=== PATIENT | female | born 1940 | race Caucasian/White ===

== ENCOUNTER 2019-07-04 09:39 | Observation (INO) ==
[2019-07-04] MEDS ORDERED: SODIUM CHLORIDE 0.9% 1,000 ML IV STA (10:16)
[2019-07-04] MEDS ORDERED: ONDANSETRON 4 MG/2 ML VIAL IV STA (10:16)
[2019-07-04 10:57] LABS: Basophils # 0.1 10*3/uL (0.0-0.2); Basophils % 0.6 % (0.0-0.8); Eosinophils # 0.3 10*3/uL (0.0-0.87); Eosinophils % 3.6 % (0.00-10.9); Hematocrit 41.7 VOL% (35.7-47.0); Hemoglobin 14.4 GM/DL (12.0-16.0); Immature Granulocytes % 0.7 %; Immature Granulocytes Absolute 0.06 #; Lymphocytes % 21.9 % (21.3-54.2); Mean Corpuscular HGB Conc 34.5 GM/DL (32-36); Mean Corpuscular Volume 89.3 FL (87-102); Mean Platelet Volume 8.3 FL (9.6-12.0); Monocytes % 10.4 % (1.7-12.7); Neutrophils % 62.8 % (38.7-73.9); Platelet Count 318 T/CUMM (130-400); Red Blood Count 4.67 MC/CUMM (3.8-5.5); Red Cell Distribution Width 12.8 % (9.3-17.3)
[2019-07-04 11:05] LABS: Apearance,Urine CLEAR (Clear); Bilirubin,Urine Negative (Negative); Blood, Urine Negative (Negative); Glucose,Urine (UA) Negative (Negative); Ketones,Urine Negative (Negative); Nitrite,Urine Negative (Negative); Protein,Urine Negative; RBC,Urine 1 /HPF (0-4); Squamous Epithelial Cell,Urine Occasional /HPF (0-10); Urine Color Yellow (Yellow); Urine Specific Gravity 1.005 (1.001-1.035); Urine Urobilinogen < 2.0 EU/DL (0.2-1.0); WBC,Urine <1 /HPF (0-6)
[2019-07-04 11:24] LABS: Albumin 4.2 G/DL (3.4-5.0); Bilirubin,Total 0.8 MG/DL (0.2-1.0); Calcium 9.3 MG/DL (8.5-10.1); Osmolality,Calculated 268.2 MOS/KG (273-304); Total Protein 8.2 G/DL (6.4-8.3)
[2019-07-04] MEDS ORDERED: POTASSIUM CHLORIDE 20 MEQ TABLET PO STA (12:31)
[2019-07-04] MEDS ORDERED: PROMETHAZINE 25 MG TABLET PO PRN (13:22)
[2019-07-04] MEDS ORDERED: diphenhydrAMINE CAP 25 MG CAPSULE PO PRN (13:22)
[2019-07-04] MEDS ORDERED: ONDANSETRON 4 MG/2 ML VIAL IV PRN (13:22)
[2019-07-04] MEDS: SODIUM CHLORIDE 0.9% 1,000 ML IV SCH ×2 (13:45→23:15)
[2019-07-04] MEDS ORDERED: hydrALAZINE 20 MG/1 ML VIAL IM PRN (17:14)
[2019-07-04] MEDS ORDERED: hydrALAZINE 20 MG/1 ML VIAL IV PRN (17:23)
[2019-07-04] MEDS: ASPIRIN EC 81 MG TABLET PO SCH (21:03)
[2019-07-04] MEDS: ATORVASTATIN 10 MG TABLET PO SCH (21:03)
[2019-07-04] MEDS: METOPROLOL SUCCINATE XL 25 MG TABLET PO SCH (21:04)
[2019-07-04] MEDS: ENOXAPARIN 40 MG/0.4 ML SYRINGE SUBCUT SCH (21:05)
[2019-07-04] MEDS: ACETAMINOPHEN 325 MG TABLET PO PRN (23:47)
[2019-07-05] MEDS: ACETAMINOPHEN 325 MG TABLET PO PRN ×2 (04:48→10:07)
[2019-07-05 05:40] LABS: Basophils # 0.1 10*3/uL (0.0-0.2); Basophils % 0.6 % (0.0-0.8); Eosinophils # 0.4 10*3/uL (0.0-0.87); Eosinophils % 5.4 % (0.00-10.9); Hematocrit 40.8 VOL% (35.7-47.0); Hemoglobin 13.9 GM/DL (12.0-16.0); Immature Granulocytes % 0.6 %; Immature Granulocytes Absolute 0.05 #; Lymphocytes # 2.1 10*3/uL (1.4-4.0); Lymphocytes % 25.5 % (21.3-54.2); Mean Corpuscular HGB Conc 34.1 GM/DL (32-36); Mean Corpuscular Volume 90.5 FL (87-102); Mean Platelet Volume 8.6 FL (9.6-12.0); Monocytes % 10.5 % (1.7-12.7); Neutrophils % 57.4 % (38.7-73.9); Platelet Count 321 T/CUMM (130-400); Red Blood Count 4.51 MC/CUMM (3.8-5.5); Red Cell Distribution Width 13.1 % (9.3-17.3); White Blood Count 8.1 T/CUMM (4-12)
[2019-07-05] MEDS ORDERED: POTASSIUM CHLORIDE 20 MEQ TABLET PO PRN (06:51)
[2019-07-05 07:48] LABS: Calcium 8.1 MG/DL (8.5-10.1); Osmolality,Calculated 277.3 MOS/KG (273-304)
[2019-07-05] MEDS: SODIUM CHLORIDE 0.9% 1,000 ML IV SCH ×4 (08:00→23:11)
[2019-07-05] MEDS ORDERED: Lansoprazole [Prevacid] 30 MG PO SCH (09:00)
[2019-07-05] MEDS: CYANOCOBALAMIN 500 MCG TABLET PO SCH (09:27)
[2019-07-05] MEDS: CALCIUM (CARBONATE) 500 MG TABLET PO SCH (09:27)
[2019-07-05] MEDS: PANTOPRAZOLE 40 MG TABLET PO SCH (09:27)
[2019-07-05] MEDS: ANASTROZOLE 1 MG TABLET PO SCH (09:54)
[2019-07-05] MEDS: LORATADINE 10 MG TABLET PO SCH (09:55)
[2019-07-05] MEDS: POTASSIUM CHLORIDE RIDER 10 MEQ in PREMIX 1 EACH IV PRN ×4 (09:56→15:48)
[2019-07-05] MEDS: MULTIVITAMIN (CENTRUM) TABLET PO SCH (10:10)
[2019-07-05] MEDS: METOPROLOL SUCCINATE XL 25 MG TABLET PO SCH ×2 (10:19→20:03)
[2019-07-05] MEDS: ATORVASTATIN 10 MG TABLET PO SCH (20:03)
[2019-07-05] MEDS: ENOXAPARIN 40 MG/0.4 ML SYRINGE SUBCUT SCH (20:03)
[2019-07-05] MEDS: ASPIRIN EC 81 MG TABLET PO SCH (20:03)
[2019-07-06 02:21] LABS: Calcium 7.9 MG/DL (8.5-10.1); Osmolality,Calculated 274.4 MOS/KG (273-304)
[2019-07-06] MEDS: POTASSIUM CHLORIDE RIDER 10 MEQ in PREMIX 1 EACH IV PRN ×3 (03:36→08:44)
[2019-07-06] MEDS: MULTIVITAMIN (CENTRUM) TABLET PO SCH (08:37)
[2019-07-06] MEDS: PANTOPRAZOLE 40 MG TABLET PO SCH (08:37)
[2019-07-06] MEDS: LORATADINE 10 MG TABLET PO SCH (08:37)
[2019-07-06] MEDS: METOPROLOL SUCCINATE XL 25 MG TABLET PO SCH (08:37)
[2019-07-06] MEDS: CYANOCOBALAMIN 500 MCG TABLET PO SCH (08:38)
[2019-07-06] MEDS: CALCIUM (CARBONATE) 500 MG TABLET PO SCH (08:38)
[2019-07-06] MEDS: SODIUM CHLORIDE 0.9% 1,000 ML IV SCH (08:38)
[2019-07-06] MEDS: ANASTROZOLE 1 MG TABLET PO SCH (08:38)
[2019-07-06 11:58] VITALS: BP 146/74
== END 2019-07-06 12:50 | disposition home or self-care (01) ==
LOC: N.ED 09:39 → N.EDINP 09:39 → N.2E 15:10

== ENCOUNTER 2019-09-12 11:39 | Observation (INO) ==
[2019-09-12] MEDS ORDERED: SODIUM CHLORIDE 0.9% 1,000 ML IV STA (12:29)
[2019-09-12 13:18] LABS: Basophils % 0.4 % (0.0-0.8); Eosinophils # 0.1 10*3/uL (0.0-0.87); Hemoglobin 13.7 GM/DL (12.0-16.0); Immature Granulocytes % 0.4 %; Immature Granulocytes Absolute 0.04 #; Lymphocytes # 0.9 10*3/uL (1.4-4.0); Lymphocytes % 8.4 % (21.3-54.2); Mean Corpuscular HGB Conc 33.4 GM/DL (32-36); Mean Corpuscular Volume 89.9 FL (87-102); Mean Platelet Volume 8.4 FL (9.6-12.0); Monocytes % 2.7 % (1.7-12.7); Neutrophils % 87.1 % (38.7-73.9); Platelet Count 256 T/CUMM (130-400); Red Blood Count 4.56 MC/CUMM (3.8-5.5); Red Cell Distribution Width 12.9 % (9.3-17.3); White Blood Count 10.1 T/CUMM (4-12)
[2019-09-12 13:26] LABS: PT Patient Result 10.5 SECS (9.6-12.2)
[2019-09-12 13:41] LABS: Apearance,Urine CLEAR (Clear); Bacteria,Urine Occasional /HPF (Few); Bilirubin,Urine Negative (Negative); Blood, Urine Negative (Negative); Glucose,Urine (UA) Negative (Negative); Ketones,Urine 5 mg/dL (Negative); Nitrite,Urine Negative (Negative); Protein,Urine Negative; RBC,Urine 2 /HPF (0-4); Squamous Epithelial Cell,Urine Occasional /HPF (0-10); Urine Color Straw (Yellow); Urine Specific Gravity 1.008 (1.001-1.035); Urine Urobilinogen < 2.0 EU/DL (0.2-1.0); WBC,Urine 1 /HPF (0-6)
[2019-09-12 13:42] LABS: Albumin 3.7 G/DL (3.4-5.0); Bilirubin,Total 0.8 MG/DL (0.2-1.0); Calcium 8.8 MG/DL (8.5-10.1); Osmolality,Calculated 275.8 MOS/KG (273-304); Total Protein 7.7 G/DL (6.4-8.3)
[2019-09-12] MEDS ORDERED: POTASSIUM CHLORIDE 20 MEQ TABLET PO STA (13:44)
[2019-09-12] MEDS ORDERED: hydrALAZINE 20 MG/1 ML VIAL ONE (13:51)
[2019-09-12] MEDS ORDERED: hydrALAZINE 20 MG/1 ML VIAL IV STA (13:55)
[2019-09-12] MEDS ORDERED: POTASSIUM BICARB EFFERVESCENT 25 MEQ TABLET PO ONE ×2 (14:29→14:30)
[2019-09-12] MEDS ORDERED: ONDANSETRON 4 MG/2 ML VIAL IV PRN (16:05)
[2019-09-12] MEDS ORDERED: ACETAMINOPHEN 325 MG TABLET PO PRN (16:05)
[2019-09-12] MEDS ORDERED: POTASSIUM CHLORIDE RIDER 10 MEQ in PREMIX 1 EACH IV ONE (16:10)
[2019-09-12] MEDS ORDERED: SODIUM CHLOR 0.9% KCL 20 MEQ 20 MEQ/1,000 ML BAG IV SCH (16:30)
[2019-09-12] MEDS ORDERED: ENOXAPARIN 40 MG/0.4 ML SYRINGE SUBCUT SCH (16:30)
[2019-09-12] MEDS ORDERED: ASPIRIN EC 81 MG TABLET PO SCH (20:00)
[2019-09-12] MEDS: LOSARTAN 50 MG TABLET PO SCH (20:09)
[2019-09-12] MEDS: carvediloL 12.5 MG TABLET PO SCH (20:09)
[2019-09-12] MEDS ORDERED: ATORVASTATIN 10 MG TABLET PO SCH (21:00)
[2019-09-13 04:19] LABS: Basophils % 0.3 % (0.0-0.8); Eosinophils # 0.1 10*3/uL (0.0-0.87); Eosinophils % 1.1 % (0.00-10.9); Hematocrit 33.7 VOL% (35.7-47.0); Hemoglobin 11.2 GM/DL (12.0-16.0); Immature Granulocytes % 0.4 %; Immature Granulocytes Absolute 0.03 #; Lymphocytes # 1.7 10*3/uL (1.4-4.0); Lymphocytes % 24.4 % (21.3-54.2); Mean Corpuscular HGB Conc 33.2 GM/DL (32-36); Mean Corpuscular Volume 89.6 FL (87-102); Mean Platelet Volume 8.5 FL (9.6-12.0); Monocytes % 11.5 % (1.7-12.7); Neutrophils % 62.3 % (38.7-73.9); Platelet Count 244 T/CUMM (130-400); Red Blood Count 3.76 MC/CUMM (3.8-5.5); Red Cell Distribution Width 13.2 % (9.3-17.3)
[2019-09-13 04:48] LABS: Calcium 7.5 MG/DL (8.5-10.1); Osmolality,Calculated 282.3 MOS/KG (273-304); Thyroid Stimulating Hormone 0.756 uIU/ml (0.358-3.74)
[2019-09-13] MEDS ORDERED: PANTOPRAZOLE 40 MG TABLET PO SCH (09:00)
[2019-09-13] MEDS ORDERED: CYANOCOBALAMIN 500 MCG TABLET PO SCH (09:00)
[2019-09-13] MEDS ORDERED: LORATADINE 10 MG TABLET PO SCH (09:00)
[2019-09-13] MEDS ORDERED: CALCIUM (CARBONATE) 500 MG TABLET PO SCH (09:00)
[2019-09-13] MEDS ORDERED: MULTIVITAMIN (CENTRUM) TABLET PO SCH (09:00)
[2019-09-13] MEDS: LOSARTAN 50 MG TABLET PO SCH (09:28)
[2019-09-13] MEDS: carvediloL 12.5 MG TABLET PO SCH (09:30)
[2019-09-13 11:24] VITALS: BP 149/73
== END 2019-09-13 13:56 | disposition home or self-care (01) ==
LOC: EDBD → EDUNIT# → N.ED 11:39 → N.EDINP 11:39 → SUATTDRO 15:48 → N.2W 17:07
PROVIDERS: ADMIT Nurse Practitioner; ATTEND Internal Medicine